=== PATIENT | female | born 1995 | race American Indian/Alaskan Native ===

== ENCOUNTER 2017-08-31 19:06 | Emergency (ER) | payer MEDICAID ==
[2017-08-31 20:28] LABS: Basophils # (Auto) 0.1 K/mm3 (0.0-0.1); Basophils % (Auto) 0.7 % (0.0-1.8); Eosinophils # (Auto) 0.2 K/mm3 (0.0-0.4); Eosinophils % (Auto) 1.9 % (0.0-4.3); Hematocrit 36.8 % (30.3-42.9); Hemoglobin 11.4 gm/dl (10.1-14.3); Lymphocytes # (Auto) 2.2 K/mm3 (1.2-5.4); Mean Corpuscular HGB Conc 31 % (30-34); Mean Corpuscular Hemoglobin 27 pg (28-32); Mean Corpuscular Volume 86 fl (79-97); Monocytes # (Auto) 0.9 K/mm3 (0.0-0.8); Monocytes % (Auto) 9.6 % (0.0-7.3); Platelet Count 286 K/mm3 (140-440); Red Blood Count 4.26 M/mm3 (3.65-5.03); Red Cell Distribution Width 14.3 % (13.2-15.2)
[2017-08-31 20:33] LABS: Alanine Aminotransferase 9 units/L (7-56); Albumin 4.3 g/dL (3.9-5); BUN/Creatinine Ratio 20; Blood Urea Nitrogen 12 mg/dL (7-17); Calcium 9.1 mg/dL (8.4-10.2); Hemolysis Index 8
--- NOTE | 2017-08-31 21:17 | Emergency Department Report ---
ED Abdominal Pain HPI - General Chief Complaint: Abdominal Pain Stated Complaint: ABDOMINAL,CHEST PAIN Time Seen by Provider: 08/31/17 20:54 Source: patient Mode of arrival: Ambulatory Limitations: No Limitations - History of Present Illness Initial Comments: 22 yo female who comes in today due to abdominal pain. She states that it has been present times one week. She also admits to chest pain times two months. She denies any chest pain currently. She states that she may be , or having an ectopic per the patient. Abdominal pain described as left lower quadrant, suprapubic, with no radiation, nausea, or vomiting. Afebrile, vitals unremarkable. MD Complaint: abdominal pain -: week(s) (one ) Location: LLQ, suprapubic Radiation: none Migration to: no migration Severity: moderate Severity scale (0 -10): 8 Quality: cramping, aching, sharp Consistency: constant Improves With: nothing Worsens With: nothing Context: other (possible (per the patient)) Associated Symptoms: nausea Treatments Prior to Arrival: other (none) - Related Data LMP Date: 08/13/17 Allergies Allergy/AdvReac Type Severity Reaction Status Date / Time No Known Allergies Allergy Unverified 08/31/17 19:32 ED Review of Systems ROS: Stated complaint: ABDOMINAL,CHEST PAIN Other details as noted in HPI Constitutional: denies: chills, fever Eyes: denies: eye pain, eye discharge, vision change ENT: denies: ear pain, throat pain Respiratory: denies: cough, shortness of breath, wheezing Cardiovascular: denies: chest pain, palpitations Endocrine: no symptoms reported Gastrointestinal: as per HPI, abdominal pain, nausea, vomiting Genitourinary: denies: urgency, dysuria, discharge Musculoskeletal: denies: back pain, joint swelling, arthralgia Skin: denies: rash, lesions Neurological: denies: headache, weakness, paresthesias Psychiatric: denies: anxiety, depression Hematological/Lymphatic: denies: easy bleeding, easy bruising ED Past Medical Hx - Past Medical History Previous Medical History?: No - Surgical History Past Surgical History?: No - Social History Smoking Status: Never Smoker Substance Use Type: None ED Physical Exam - General Limitations: No Limitations General appearance: alert, in no apparent distress - Head Head exam: Present: atraumatic, normocephalic - Eye Eye exam: Present: normal appearance - ENT ENT exam: Present: mucous membranes moist - Neck Neck exam: Present: normal inspection - Respiratory Respiratory exam: Present: normal lung sounds bilaterally. Absent: respiratory distress - Cardiovascular Cardiovascular Exam: Present: regular rate, normal rhythm. Absent: systolic murmur, diastolic murmur, rubs, gallop - GI/Abdominal GI/Abdominal exam: Present: tenderness (suprapubic, left lower quadrant ) - Extremities Exam Extremities exam: Present: normal inspection - Back Exam Back exam: Present: normal inspection - Neurological Exam Neurological exam: Present: alert - Psychiatric Psychiatric exam: Present: normal affect - Skin Skin exam: Present: warm ED Course Vital Signs 08/31/17 08/31/17 08/31/17 19:26 20:52 20:53 Temperature 98.3 F 98 F Pulse Rate 95 H 80 Respiratory 18 18 Rate Blood Pressure 110/64 Blood Pressure 112/68 [Left] O2 Sat by Pulse 99 100 Oximetry - Reevaluation(s) Reevaluation #1: 08/31/17 21:29 Awaiting urine and hcg results. ED Medical Decision Making - Lab Data Result diagrams: 08/31/17 20:00 08/31/17 20:00 - EKG Data -: EKG Interpreted by Me EKG shows normal: sinus rhythm Rate: normal - EKG Data When compared to previous EKG there are: previous EKG unavailable Interpretation: no acute changes, normal EKG - Medical Decision Making Abdominal pain Nausea/vomiting Chest pain Anxiety - Differential Diagnosis abdominal pain, nausea/vomiting, chest pain, anxiety Critical care attestation.: If time is entered above; I have spent that time in minutes in the direct care of this critically ill patient, excluding procedure time. ED Disposition Clinical Impression: Abdominal pain, Nausea & vomiting, Chest pain, Anxiety Disposition: DC-01 TO HOME OR SELFCARE Is pt being admited?: No Does the pt Need Aspirin: No Condition: Stable Instructions: Abdominal Pain (ED), Chest Pain (ED), Anxiety (ED) Additional Instructions: Please follow up with your provider on discharge for further evaluation. Referrals: PRIMARY CARE, [Referring] - 3-5 Days Time of Disposition: 23:07
[2017-08-31 21:46] LABS: Bilirubin,Urine NEG (Negative); Blood,Urine NEG (Negative); Color,Urine Yellow (Yellow); Mucus,Urine 3+ /HPF; Nitrite,Urine NEG (Negative); Urobilinogen,Urine < 2.0 mg/dL (<2.0)
[2017-08-31 23:03] LABS: HCG Qualitative,Urine Negative (Negative)
[2017-08-31 23:28] VITALS: BP 114/72
== END 2017-08-31 23:34 | disposition home or self-care (01) ==
LOC: ED 19:06
DX: R10.32 Left lower quadrant pain (principal); R11.2 Nausea with vomiting, unspecified; R07.9 Chest pain, unspecified; F41.9 Anxiety disorder, unspecified
CPT/HCPCS: 36415; 80053; 81001; 81025; 85025; 93005; 93010; 99283

== ENCOUNTER 2017-09-11 17:56 | Emergency (ER) | payer MEDICAID ==
[2017-09-11 18:47] VITALS: BP 103/70
== END 2017-09-12 04:58 | disposition left against medical advice (07) ==
LOC: ED 17:56
DX: R10.9 Unspecified abdominal pain (principal); Z53.21 Procedure and treatment not carried out due to patient leaving prior to being seen by health care provider

== ENCOUNTER 2017-09-15 14:37 | Emergency (ER) | payer MEDICAID ==
[2017-09-15 14:51] VITALS: BP 116/70
--- NOTE | 2017-09-15 18:51 | Emergency Department Report ---
<GAMALIEL VO - Last Filed: 09/15/17 18:03> ED Female HPI - General Chief complaint: Urogenital-Female Stated complaint: ABDOMINAL PAIN Time Seen by Provider: 09/15/17 18:03 Source: patient Mode of arrival: Ambulatory Limitations: No Limitations - History of Present Illness Initial comments: 22-year-old Faith female comes in for complaint of vaginal discharge and possible exposure to Trichomonas. Patient reports that she's been having abdominal pain for greater than a month. She is sexually active with one partner. She reports she has vaginal discharge but no odor and no itchiness. Patient is 3 para 1. She currently takes no medication has no known drug allergies. MD Complaint: vaginal discharge, pelvic pain - Related Data Previous Rx's Medication Instructions Recorded Last Taken Type metroNIDAZOLE [Flagyl] 500 mg PO Q12HR 7 Days #14 tab 09/15/17 Unknown Rx Allergies Allergy/AdvReac Type Severity Reaction Status Date / Time No Known Allergies Allergy Verified 09/15/17 14:48 ED Review of Systems ROS: Stated complaint: ABDOMINAL PAIN Other details as noted in HPI Constitutional: denies: chills, fever Eyes: denies: eye pain, eye discharge, vision change ENT: denies: ear pain, throat pain Respiratory: denies: cough, shortness of breath, wheezing Cardiovascular: denies: chest pain, palpitations Endocrine: no symptoms reported Gastrointestinal: denies: abdominal pain, nausea, diarrhea Genitourinary: denies: urgency, dysuria, discharge Musculoskeletal: denies: back pain, joint swelling, arthralgia Skin: denies: rash, lesions Neurological: denies: headache, weakness, paresthesias Psychiatric: denies: anxiety, depression Hematological/Lymphatic: denies: easy bleeding, easy bruising ED Past Medical Hx - Past Medical History Previous Medical History?: No - Surgical History Past Surgical History?: No - Social History Smoking Status: Never Smoker Substance Use Type: None - Medications Home Medications: Home Medications Medication Instructions Recorded Confirmed Last Taken Type metroNIDAZOLE [Flagyl] 500 mg PO Q12HR 7 Days #14 tab 09/15/17 Unknown Rx ED Physical Exam - General Limitations: No Limitations General appearance: alert, in no apparent distress - Head Head exam: Present: atraumatic, normocephalic - ENT ENT exam: Present: mucous membranes moist - External exam: Present: normal external exam Speculum exam: Present: vaginal discharge, cervical discharge Bi-manual exam: Present: normal bi-manual exam. Absent: adnexal tenderness - Extremities Exam Extremities exam: Present: normal inspection - Back Exam Back exam: Present: normal inspection - Neurological Exam Neurological exam: Present: alert, oriented X3 - Psychiatric Psychiatric exam: Present: normal affect, normal mood - Skin Skin exam: Present: warm, dry, intact, normal color. Absent: rash ED Course Vital Signs 09/15/17 14:48 Temperature 98 F Pulse Rate 74 Respiratory 18 Rate Blood Pressure 116/70 O2 Sat by Pulse 100 Oximetry ED Medical Decision Making - Radiology Data Radiology results: report reviewed, image reviewed - Medical Decision Making Patient's been evaluated by this provider faster. We will send wet prep and GC and treat her presumptively. Critical care attestation.: If time is entered above; I have spent that time in minutes in the direct care of this critically ill patient, excluding procedure time. ED Disposition Clinical Impression: Trichomonas infection, STD exposure, BV (bacterial vaginosis), Concern about STD in female without diagnosis Disposition: DC-01 TO HOME OR SELFCARE Is pt being admited?: No Does the pt Need Aspirin: No Condition: Stable Instructions: Bacterial Vaginosis (ED), Trichomoniasis (ED), Safe Sex (ED), Sexually Transmitted Diseases (ED) Additional Instructions: Please practice safe sex You were treated gonorrhea and Chlamydia in emergency room. Please do not have any sexual activity for the next 2 weeks. test was negative. Take medication as prescribed. This medication will cover bacterial vaginosis and Trichomonas. Please refrain from drinking all call while taking this medicine Please follow-up with the [employer] or [facility] for repeat STD testing and set 7-10 days Prescriptions: metroNIDAZOLE [Flagyl] 500 mg PO Q12HR 7 Days #14 tab Referrals: PRIMARY CARE, [Primary Care Provider] - 3-5 Days Forms: STI Treatment and Prevention, Work/School Release Form(ED) <BUBBA APPIAH - Last Filed: 09/15/17 20:28> ED Course - Reevaluation(s) Reevaluation #1: 09/15/17 20:19 I discussed patient that her wet prep results came back that she has greater than 20% himself which is bacterial vaginosis and also moderate amount of tract and no yeast. I discussed with her that her urinalysis is negative for urinary tract infection and her test is negative. Patient given the option to be treated empirically for gonorrhea and chlamydia and she chose to be treated. Patient and give an ceftriaxone 250 mg IM for gonorrhea and azithromycin 1 g by mouth for chlamydia. She is pleasant positive for bacterial vaginosis and Trichomonas which will be treated with Flagyl 500 mg twice daily for 7 days. I discussed with her she needs to refrain from drinking all call while taking Flagyl as this medication causes negative reaction with alcohol. I also discussed with her that she will need to follow- up at [facility] in 10 days for repeat testing and she needs not have any sexual activity while waiting for repeat testing. Safe sex discussed. I also encouraged her to let her partner know that she was treated for Trichomonas another STD in the emergency room. She voiced understanding and and discharged home in stable condition. ED Medical Decision Making - Lab Data Lab Results 09/15/17 Range/Units 19:14 Urine Color Yellow (Yellow) Urine Turbidity Clear (Clear) Urine pH 6.0 (5.0-7.0) Ur Specific [place] 1.023 (1.003-1.030) Urine Protein <15 mg/dl (Negative) mg/dL Urine Glucose (UA) Neg (Negative) mg/dL Urine Ketones Neg (Negative) mg/dL Urine Blood Neg (Negative) Urine Nitrite Neg (Negative) Urine Bilirubin Neg (Negative) Urine Urobilinogen < 2.0 (<2.0) mg/dL Ur Leukocyte Esterase Neg (Negative) Urine WBC (Auto) 2.0 (0.0-6.0) /HPF Urine RBC (Auto) 1.0 (0.0-6.0) /HPF U Epithel Cells (Auto) 4.0 (0-13.0) /HPF Urine Bacteria (Auto) 1+ (Negative) /HPF Urine Mucus 3+ /HPF Urine HCG, Qual Negative (Negative) Wet prep greater than 20% to cell, moderate Trichomonas and no yeast. Urinalysis revealed 1+ bacteria therefore urine culture sent off.
[2017-09-15 19:41] LABS: Bilirubin,Urine NEG (Negative); Color,Urine Yellow (Yellow)
[2017-09-15 19:42] LABS: Bacteria,Urine 1+ /HPF (Negative); Blood,Urine NEG (Negative); Mucus,Urine 3+ /HPF; Nitrite,Urine NEG (Negative); Protein,Urine <15 mg/dL mg/dL (Negative); Urobilinogen,Urine < 2.0 mg/dL (<2.0)
[2017-09-15 19:43] LABS: HCG Qualitative,Urine Negative (Negative)
[2017-09-15] MEDS ORDERED: ROCEPHIN IM ONE (20:18)
[2017-09-15] MEDS ORDERED: XYLOCAINE 1% MPF 5 mL INFILTRATI ONE (20:18)
[2017-09-15] MEDS ORDERED: ZITHROMAX PO ONE (20:18)
== END 2017-09-15 20:58 | disposition home or self-care (01) ==
LOC: ED 14:37
DX: A59.01 Trichomonal vulvovaginitis (principal); N76.0 Acute vaginitis; B96.89 Other specified bacterial agents as the cause of diseases classified elsewhere
CPT/HCPCS: 81001; 81025; 87086; 87210; 87591; 96372; 99284; J0696

== ENCOUNTER 2018-10-01 16:02 | Observation (INO) | payer MEDICAID ==
--- NOTE | 2018-10-01 16:15 | Emergency Department Report ---
Blank Doc - Documentation Documentation: This is a 23-year-old female that presents with headache with level of 9/10. Patient had vaginal on 09/24/2018. Denies hx of HTN. Denies thunderclap headache. Denies any blurry vision or visual changes. This initial assessment diagnostic orders/clinical plan/treatment(s) is/are subject to change based on patient's health status, clinical progression and re- assessment by fellow clinical providers in the ED. Further treatment and workup at subsequent clinical providers discretion. Patient/guardians urged not to elope from ED s their condition may be serious if not clinically assessed and managed. Initial orders include: 1-Patient sent to MAIN ED for further evaluation and treatment 2- Labs 3- UA
[2018-10-01] MEDS ORDERED: NORMODYNE IV ONE (16:53)
[2018-10-01 16:54] LABS: Basophils % (Auto) 0.5 % (0.0-1.8); Eosinophils # (Auto) 0.2 K/mm3 (0.0-0.4); Eosinophils % (Auto) 2.7 % (0.0-4.3); Hemoglobin 11.4 gm/dl (10.1-14.3); Lymphocytes % (Auto) 12.5 % (13.4-35.0); Mean Corpuscular HGB Conc 32 % (30-34); Mean Corpuscular Volume 86 fl (79-97); Monocytes # (Auto) 0.8 K/mm3 (0.0-0.8); Monocytes % (Auto) 10.1 % (0.0-7.3); Platelet Count 383 K/mm3 (140-440); Red Blood Count 4.19 M/mm3 (3.65-5.03); Red Cell Distribution Width 15.6 % (13.2-15.2)
--- NOTE | 2018-10-01 16:54 | Emergency Department Report ---
ED Headache HPI - General Chief Complaint: Headache Stated Complaint: HEADACHE 2 DAYS Time Seen by Provider: 10/01/18 16:12 Source: patient - History of Present Illness Initial Comments: 23-year-old female presents to ED with complaint of headache 3 days. Patient is 7 days , status post uneventful vaginal delivery. Denies any history of chronic hypertension, preeclampsia. Patient reported headache is located in the top of her head, unrelieved with ibuprofen. Patient denies fever, nausea or vomiting. OB: Dr Rowena Newsome Timing/Duration: other (3 days) Quality: severe Recent Head Trauma: no recent headache/trauma Associated Symptoms: denies: fever/chills, nausea/vomiting Allergies/Adverse Reactions: Allergies No Known Allergies Allergy (Verified 09/15/17 14:48) Home Medications: Ambulatory Orders metroNIDAZOLE [Flagyl] 500 mg PO Q12HR 7 Days #14 tab 09/15/17 HYDROcodone/APAP 5-325 [[place] 5/325] 1 each PO Q6HR PRN #20 tablet 09/25/18 Ibuprofen [Motrin] 800 mg PO Q8HR PRN #60 tablet 09/25/18 ED Review of Systems ROS: Stated complaint: HEADACHE 2 DAYS Other details as noted in HPI Comment: All other systems reviewed and negative Constitutional: denies: chills, fever Respiratory: denies: shortness of breath Cardiovascular: as per HPI. denies: chest pain Neurological: headache. denies: weakness, paresthesias ED Past Medical Hx - Past Medical History Previous Medical History?: No Hx Hypertension: No Hx Congestive Heart Failure: No Hx Diabetes: No Hx Deep Vein Thrombosis: No Hx Renal Disease: No Hx Sickle Cell Disease: No Hx Seizures: No Hx Asthma: No Hx COPD: No Hx HIV: No - Surgical History Past Surgical History?: No - Social History Smoking Status: Never Smoker Substance Use Type: None - Medications Home Medications: Home Medications Medication Instructions Recorded Confirmed Last Taken Type metroNIDAZOLE [Flagyl] 500 mg PO Q12HR 7 Days #14 tab 09/15/17 09/24/18 Unknown Rx HYDROcodone/APAP 5-325 [[place] 1 each PO Q6HR PRN #20 tablet 09/25/18 Unknown Rx 5/325] Ibuprofen [Motrin] 800 mg PO Q8HR PRN #60 tablet 09/25/18 Unknown Rx ED Physical Exam - General Limitations: No Limitations General appearance: alert, in no apparent distress - Head Head exam: Present: atraumatic, normocephalic - Eye Eye exam: Present: normal appearance - ENT ENT exam: Present: mucous membranes moist - Neck Neck exam: Present: normal inspection - Respiratory Respiratory exam: Present: normal lung sounds bilaterally. Absent: respiratory distress - Cardiovascular Cardiovascular Exam: Present: regular rate, normal rhythm - GI/Abdominal GI/Abdominal exam: Present: soft. Absent: distended, tenderness - Extremities Exam Extremities exam: Present: normal inspection. Absent: pedal edema - Neurological Exam Neurological exam: Present: alert, oriented X3, CN II-XII intact. Absent: motor sensory deficit - Psychiatric Psychiatric exam: Present: normal affect, normal mood - Skin Skin exam: Present: warm, dry, intact, normal color ED Course Vital Signs 10/01/18 10/01/18 16:04 16:16 Temperature 98.1 F Pulse Rate 84 Respiratory 20 Rate Blood Pressure 147/110 Blood Pressure 139/107 [Left] O2 Sat by Pulse 100 Oximetry - Consultations Consultation #1: 10/01/18 17:14 Spoke w/ Dr Hutchison. States will admit for preeclampsia. Will transport pt to L&D ED Medical Decision Making - Lab Data Result diagrams: 10/01/18 16:28 10/01/18 16:28 - Medical Decision Making 23-year-old female, 7 days , with suspected preeclampsia. Patient is an ED complaining of headache, with elevated blood pressure 150s/ 100s here in ED. No history of preeclampsia during her for history of chronic hypertension. Neurologic exam normal, no focal deficits. Contacted Dr. Estrada, who will admit patient to L&D so that magnesium sulfate drip can be initiated. Patient was given labetalol 10 mg for her elevated blood pressure and transported to L&D. Patient with positive proteinuria, elevated LDH, elevated ALT. - Differential Diagnosis preeclampsia, tension DOMINGUEZ, migraine DOMINGUEZ Critical Care Time: Yes Critical care time in (mins) excluding proc time.: 30 Critical care attestation.: If time is entered above; I have spent that time in minutes in the direct care of this critically ill patient, excluding procedure time. Critical Care Time: 30 minutes ED Disposition Clinical Impression: Pre-eclampsia, Disposition: OP ADMIT IP TO THIS HOSP Is pt being admited?: Yes Condition: Stable Time of Disposition: 17:08
[2018-10-01 17:01] LABS: INR 0.98 (0.87-1.13); Partial Thromboplastin Time 25.3 Sec. (24.2-36.6)
[2018-10-01 17:09] LABS: Alanine Aminotransferase 174 units/L (7-56); Albumin 3.8 g/dL (3.9-5); BUN/Creatinine Ratio 12; Blood Urea Nitrogen 7 mg/dL (7-17); Calcium 8.9 mg/dL (8.4-10.2); Hemolysis Index 2
[2018-10-01 17:25] LABS: Bacteria,Urine 1+ /HPF (Negative); Bilirubin,Urine NEG (Negative); Blood,Urine LG (Negative); Color,Urine Yellow (Yellow); Mucus,Urine FEW /HPF; Urobilinogen,Urine < 2.0 mg/dL (<2.0)
[2018-10-01] MEDS ORDERED: MAGNESIUM SULFATE 4GM/100ML 4 GM/100 ML BAG IV ONE (17:42)
[2018-10-01] MEDS ORDERED: LACTATED RINGERS 1,000 ML ONE (17:46)
[2018-10-01] MEDS ORDERED: LACTATED RINGERS 1,000 ML IV SCH (18:00)
[2018-10-01] MEDS: MAGNESIUM SULFATE 40GM/1000ML 40 GM/1,000 ML BAG IV SCH (18:30)
[2018-10-01 19:00] LABS: Uric Acid 5.3 mg/dL (3.5-7.6)
--- NOTE | 2018-10-02 06:54 | Short Stay Summary ---
Short Stay Documentation Date of service: 10/02/18 Narrative H&P: 23y/o s/p delivery approximately a week ago presents to the ED with the complaint of headache for the last 3 days. The patient was found to have elevated blood pressures upon evaluation. The patient denies any gestational hypertension during her . - History Principal diagnosis: preeclampsia Past Medical History: No medical history Past Surgical History: No surgical history Social history: single - Allergies and Medications Current Medications: Allergies No Known Allergies Allergy (Verified 09/15/17 14:48) Home Medications Medication Instructions Recorded Confirmed Last Taken Type metroNIDAZOLE [Flagyl] 500 mg PO Q12HR 7 Days #14 tab 09/15/17 09/24/18 Unknown Rx HYDROcodone/APAP 5-325 [[place] 1 each PO Q6HR PRN #20 tablet 09/25/18 Unknown Rx 5/325] Ibuprofen [Motrin] 800 mg PO Q8HR PRN #60 tablet 09/25/18 Unknown Rx Active Medications Magnesium Sulfate (Magnesium Sulfate 40gm/1000ml) 40 gm in 1,000 mls @ 50 mls/hr IV DIRECT AMIRAH Last Admin: 10/01/18 18:30 Dose: 2 gm/hr, 50 mls/hr Documented by: Lactated Ringer's (Lactated Ringers) 1,000 mls @ 75 mls/hr IV DIRECT AMIRAH Last Admin: 10/01/18 18:27 Dose: 75 mls/hr Documented by: - Physical exam General appearance: no acute distress Integumentary: no rash HEENT: Atraumatic Lungs: Clear to auscultation Breasts: deferred Heart: Regular rate Gastrointestinal: normal Female Genitourinary: deferred - Hospital course Hospital course: Patient from the ED with persistent headache and found to have preeclampsia. Patient admitted for magnesium with improvement in symptoms. Blood pressures normalized. - Disposition Condition at discharge: Good Disposition: DC-01 TO HOME OR SELFCARE Short Stay Discharge Plan Diet: regular Additional Instructions: schedule followup in one week for blood pressure check
[2018-10-02] MEDS: MAGNESIUM SULFATE 40GM/1000ML 40 GM/1,000 ML BAG IV SCH (12:34)
[2018-10-02 18:03] VITALS: BP 117/69
== END 2018-10-02 18:57 | disposition home or self-care (01) ==
LOC: ED 16:02 → TRG 16:02 → ED 17:17 → EDSTATUS 17:24 → LD 17:33 → TRG 23:50 → LD 10-02 00:24
PROVIDERS: ADMIT Obstetrics & Gynecology; ATTEND Obstetrics & Gynecology
DX: O14.95 Unspecified pre-eclampsia, complicating the puerperium (principal)
CPT/HCPCS: 36415; 80053; 81001; 83615; 83735; 84550; 85025; 85610; 85730; 96365; 96366; 96375; 99291; G0378; J3475; J7120

== ENCOUNTER 2018-10-12 20:18 | Inpatient (IN) | payer MEDICAID ==
--- NOTE | 2018-10-12 20:29 | Emergency Department Report ---
Chief Complaint: High BP Stated Complaint: HEAD PAINS DIZZINESS WHEN STANDING Time Seen by Provider: 10/12/18 20:24 - HPI History of Present Illness: Pt is c/o lightheadedness for the last two hours (+) DOMINGUEZ no emesis, vision changes, numbness, unilateral weakness, urinary sx post preeclampsia, pt was prescribed labetolol 200 mg BID and has been taking it for 3-4 days Pt had her child on 09/24/18, no complications, no HTN during Dr. Newsome, [employer] prescribed the labetolol pt has family hx of HTN /P:2 MSE screening note: Focused history and physical exam performed. Due to findings the following was ordered: UA, CBC, BMP ED Disposition for MSE Condition: Stable
[2018-10-12 20:47] LABS: Bilirubin,Urine NEG (Negative); Blood,Urine NEG (Negative); Color,Urine Yellow (Yellow); Mucus,Urine FEW /HPF
[2018-10-12 21:08] LABS: Hematocrit 34.1 % (30.3-42.9); Mean Corpuscular HGB Conc 32 % (30-34); Mean Corpuscular Volume 85 fl (79-97); Platelet Count 397 K/mm3 (140-440)
[2018-10-12 21:14] LABS: Alanine Aminotransferase 14 units/L (7-56); Albumin 3.9 g/dL (3.9-5); BUN/Creatinine Ratio 11; Blood Urea Nitrogen 9 mg/dL (7-17); Calcium 9.2 mg/dL (8.4-10.2); Hemolysis Index 9
[2018-10-12] MEDS ORDERED: PROCARDIA XL PO ONE (22:16)
--- NOTE | 2018-10-12 22:30 | Emergency Department Report ---
ED Headache HPI - General Chief Complaint: High BP Stated Complaint: HEAD PAINS DIZZINESS WHEN STANDING Time Seen by Provider: 10/12/18 20:24 - History of Present Illness Allergies/Adverse Reactions: Allergies No Known Allergies Allergy (Verified 09/15/17 14:48) Home Medications: Ambulatory Orders metroNIDAZOLE [Flagyl] 500 mg PO Q12HR 7 Days #14 tab 09/15/17 HYDROcodone/APAP 5-325 [[place] 5/325] 1 each PO Q6HR PRN #20 tablet 09/25/18 Ibuprofen [Motrin] 800 mg PO Q8HR PRN #60 tablet 09/25/18 ED Review of Systems ROS: Stated complaint: HEAD PAINS DIZZINESS WHEN STANDING Other details as noted in HPI ED Past Medical Hx - Past Medical History Previous Medical History?: Yes Hx Hypertension: No Hx Congestive Heart Failure: No Hx Diabetes: No Hx Deep Vein Thrombosis: No Hx Renal Disease: No Hx Sickle Cell Disease: No Hx Seizures: No Hx Asthma: No Hx COPD: No Hx HIV: No Additional medical history: preeclampsia - Surgical History Past Surgical History?: No - Social History Smoking Status: Never Smoker Substance Use Type: None - Medications Home Medications: Home Medications Medication Instructions Recorded Confirmed Last Taken Type metroNIDAZOLE [Flagyl] 500 mg PO Q12HR 7 Days #14 tab 09/15/17 09/24/18 Unknown Rx HYDROcodone/APAP 5-325 [[place] 1 each PO Q6HR PRN #20 tablet 09/25/18 Unknown Rx 5/325] Ibuprofen [Motrin] 800 mg PO Q8HR PRN #60 tablet 09/25/18 Unknown Rx ED Physical Exam - General Limitations: No Limitations ED Course Vital Signs 10/12/18 10/12/18 10/12/18 20:22 22:00 22:31 Temperature 98.2 F Pulse Rate 75 60 77 Respiratory 18 17 16 Rate Blood Pressure 150/98 155/104 155/104 Blood Pressure [Right] O2 Sat by Pulse 100 100 100 Oximetry 10/12/18 10/12/18 10/12/18 22:41 23:00 23:30 Temperature 98.4 F Pulse Rate 68 63 64 Respiratory 16 13 Rate Blood Pressure 150/91 170/111 Blood Pressure 178/86 150/91 [Right] O2 Sat by Pulse 100 100 Oximetry 10/12/18 10/13/18 10/13/18 23:47 00:11 00:15 Temperature Pulse Rate 57 L 75 Respiratory 15 14 11 L Rate Blood Pressure 170/111 170/111 136/91 Blood Pressure [Right] O2 Sat by Pulse 100 100 99 Oximetry 10/13/18 00:30 Temperature Pulse Rate 84 Respiratory 15 Rate Blood Pressure 126/79 Blood Pressure [Right] O2 Sat by Pulse Oximetry - Consultations Consultation #1: 10/12/18 22:29 Spoke w/ Dr Bliss. States give Procardia 60 mg PO, recheck BP in 30 min. If still elevated, will re-admit. If improves, d/c w/ Procardia and pt to f/u in office tomorrow. 10/12/18 23:35 One hour since procardia given. BP currently 170/111. Spoke again w/ Dr Bolivar dela cruz, states give mag bolus of 4g and initiate 2g/hr gtt. Would like bridge orders to [facility] ED Medical Decision Making - Lab Data Result diagrams: 10/12/18 20:40 10/12/18 20:45 Critical Care Time: Yes Critical care time in (mins) excluding proc time.: 30 Critical care attestation.: If time is entered above; I have spent that time in minutes in the direct care of this critically ill patient, excluding procedure time. Critical Care Time: 30 minutes ED Disposition Clinical Impression: Pre-eclampsia, Disposition: -09 OP ADMIT IP TO THIS HOSP Is pt being admited?: Yes Condition: Stable Time of Disposition: 23:38
[2018-10-12] MEDS ORDERED: MAGNESIUM SULFATE 4GM/100ML 4 GM/100 ML BAG IV ONE (23:36)
[2018-10-12] MEDS ORDERED: MAGNESIUM SULFATE 40GM/1000ML 40 GM/1,000 ML BAG IV SCH (23:45)
[2018-10-13] MEDS ORDERED: LACTATED RINGERS 1,000 ML IV SCH (01:00)
[2018-10-13] MEDS ORDERED: LACTATED RINGERS 1,000 ML ONE (01:11)
[2018-10-13] MEDS ORDERED: IBUPROFEN PO PRN (01:53)
--- NOTE | 2018-10-13 16:27 | Progress Note ---
Assessment and Plan A/P HD# PP pree on mag mag levels q4 mag for 24 hrs BP antihypertensice s needed Subjective - Subjective Date of service: 10/13/18 Principal diagnosis: PP Pree Patient reports: appetite normal, voiding normally, pain well controlled, flatus, ambulating normally [place]: doing well Objective - Vital Signs Latest vital signs: Vital Signs Temp Pulse Resp BP BP Pulse Ox 10/13/18 16:20 102 H 99 10/13/18 16:15 107 H 100 10/13/18 16:10 105 H 99 10/13/18 16:05 105 H 104/57 98 10/13/18 16:00 116 H 100 10/13/18 15:55 106 H 99 10/13/18 15:50 109 H 99 10/13/18 15:45 113 H 98 10/13/18 15:40 111 H 100 10/13/18 15:35 119 H 97 10/13/18 15:30 107 H 98 10/13/18 15:25 114 H 99 10/13/18 15:20 108 H 100 10/13/18 15:15 111 H 99 10/13/18 15:10 107 H 100 10/13/18 15:05 107 H 107/59 98 10/13/18 15:00 103 H 96 10/13/18 14:55 108 H 99 10/13/18 14:50 112 H 100 10/13/18 14:45 103 H 99 10/13/18 14:40 103 H 98 10/13/18 14:35 106 H 99 10/13/18 14:28 98 H 99 10/13/18 14:23 95 H 98 10/13/18 14:18 102 H 99 10/13/18 14:13 102 H 100 10/13/18 14:08 95 H 99 10/13/18 14:05 91 H 102/58 10/13/18 14:03 95 H 98 10/13/18 13:58 97 H 99 10/13/18 13:53 98 H 100 10/13/18 13:48 86 99 10/13/18 13:43 91 H 99 10/13/18 13:38 88 99 10/13/18 13:33 87 99 10/13/18 13:28 86 99 10/13/18 13:23 89 99 03/04/19 13:18 85 99 10/13/18 13:13 89 99 10/13/18 13:08 89 98 10/13/18 13:05 90 103/57 10/13/18 13:03 87 99 10/13/18 12:58 89 99 10/13/18 12:53 90 99 10/13/18 12:48 89 99 10/13/18 12:43 88 99 10/13/18 12:38 88 99 10/13/18 12:33 91 H 99 10/13/18 12:28 90 99 10/13/18 12:23 91 H 99 10/13/18 12:18 93 H 99 10/13/18 12:13 100 H 99 10/13/18 12:08 105 H 99 10/13/18 12:05 104 H 84/54 10/13/18 12:03 88 98 10/13/18 12:00 98.0 F 10/13/18 11:58 89 99 10/13/18 11:53 91 H 99 10/13/18 11:48 91 H 99 10/13/18 11:43 91 H 99 10/13/18 11:38 87 99 10/13/18 11:33 89 98 /11/28 11:28 90 99 10/13/18 11:23 89 99 10/13/18 11:18 91 H 99 10/13/18 11:13 89 99 10/13/18 11:08 89 99 10/13/18 11:05 90 97/51 10/13/18 11:03 91 H 98 10/13/18 10:58 90 98 10/13/18 10:53 88 98 10/13/18 10:48 88 98 10/13/18 10:43 94 H 98 10/13/18 10:38 92 H 99 10/13/18 10:33 87 98 10/13/18 10:28 90 99 10/13/18 10:23 92 H 98 10/13/18 10:18 88 98 10/13/18 10:13 90 98 10/13/18 10:08 91 H 98 10/13/18 10:05 88 97/52 10/13/18 10:03 97 H 97 10/13/18 09:58 90 99 10/13/18 09:53 89 98 10/13/18 09:48 89 99 10/13/18 09:43 87 98 03/11/28 09:38 98 H 99 /11/28 09:33 97 H 99 /11/28 09:28 93 H 98 /11/28 09:23 94 H 99 /11/28 09:18 96 H 99 10/13/18 09:13 94 H 99 /11/28 09:08 97 H 99 /04 09:05 90 98/56 10/13/18 09:03 94 H 100 10/13/18 08:58 95 H 99 10/13/18 08:53 91 H 99 /11/28 08:48 88 98 10/13/18 08:43 102 H 99 10/13/18 08:38 101 H 98 /11/28 08:33 92 H 99 10/13/18 08:28 97 H 98 10/13/18 08:23 96 H 99 /11/28 08:18 108 H 99 /11/28 08:13 102 H 99 10/13/18 08:08 103 H 99 10/13/18 08:05 96 H 109/53 10/13/18 08:03 96 H 98 10/13/18 07:58 97 H 99 // 07:53 100 H 98 10/13/18 07:48 102 H 99 10/13/18 07:43 113 H 98 10/13/18 07:38 124 H 99 /11/28 07:33 97.7 F 108 H 98 /11/28 07:28 107 H 99 10/13/18 07:23 103 H 97 10/13/18 07:18 97 H 98 /11/28 07:13 99 H 98 /11/28 07:08 98 H 98 10/13/18 07:05 102 H 100/54 /11/28 07:03 100 H 98 /04 06:58 101 H 97 04 06:53 96 H 98 10/13/18 06:48 93 H 97 /11/28 06:43 92 H 98 04 06:38 93 H 98 /04/ 06:33 91 H 98 /11/28 06:28 90 99 /04 06:23 86 98 10/13/18 06:18 84 99 10/13/18 06:13 85 98 10/13/18 06:08 82 98 10/13/18 06:05 84 109/66 10/13/18 06:03 84 98 10/13/18 05:58 84 98 10/13/18 05:53 81 98 10/13/18 05:48 82 98 10/13/18 05:43 80 98 10/13/18 05:38 82 98 10/13/18 05:33 81 98 10/13/18 05:28 80 98 10/13/18 05:23 83 98 10/13/18 05:18 81 98 10/13/18 05:13 79 98 10/13/18 05:08 79 98 10/13/18 05:05 78 119/78 10/13/18 05:03 80 97 10/13/18 04:58 84 99 10/13/18 04:53 83 98 10/13/18 04:48 83 99 10/13/18 04:43 81 99 10/13/18 04:38 85 100 10/13/18 04:33 84 97 10/13/18 04:28 87 99 10/13/18 04:23 89 98 10/13/18 04:18 79 99 10/13/18 04:13 85 99 10/13/18 04:08 76 98 10/13/18 04:05 70 123/77 10/13/18 04:03 74 98 10/13/18 03:58 75 98 10/13/18 03:53 76 99 10/13/18 03:48 73 98 10/13/18 03:43 75 99 10/13/18 03:38 75 98 10/13/18 03:33 71 98 10/13/18 03:28 74 99 10/13/18 03:23 70 99 10/13/18 03:18 68 99 10/13/18 03:13 69 99 10/13/18 03:08 76 100 10/13/18 03:05 73 136/94 10/13/18 03:03 76 100 10/13/18 03:00 73 20 136/94 10/13/18 02:58 72 100 10/13/18 02:53 74 100 10/13/18 02:48 77 100 10/13/18 02:43 80 100 10/13/18 02:38 77 100 10/13/18 02:33 80 100 10/13/18 02:27 69 100 10/13/18 02:22 68 100 10/13/18 02:17 78 100 10/13/18 02:12 78 100 10/13/18 02:07 68 100 10/13/18 02:05 66 127/82 10/13/18 02:02 75 100 10/13/18 02:00 66 20 127/82 10/13/18 01:57 79 99 10/13/18 01:52 65 99 10/13/18 01:47 61 100 10/13/18 01:42 66 100 10/13/18 01:37 62 100 10/13/18 01:32 70 100 10/13/18 01:27 69 100 10/13/18 01:22 96 H 99 10/13/18 01:17 75 99 10/13/18 01:12 68 100 10/13/18 01:07 67 99 10/13/18 01:05 71 133/95 10/13/18 01:00 98.5 F 71 20 133/95 10/13/18 00:30 84 15 126/79 10/13/18 00:15 75 11 L 136/91 99 10/13/18 00:11 14 170/111 100 10/12/18 23:47 57 L 15 170/111 100 10/12/18 23:30 64 13 170/111 100 10/12/18 23:00 98.4 F 63 16 150/91 150/91 100 10/12/18 22:41 68 178/86 10/12/18 22:31 77 16 155/104 100 10/12/18 22:00 60 17 155/104 100 10/12/18 20:22 98.2 F 75 18 150/98 100 Intake and Output 10/13/18 10/13/18 10/13/18 07:59 15:59 23:59 Intake Total 375 Output Total 720 1170 Balance -345 -1170 Intake: IV 375 Lactated Ringers 1,000 ml 225 @ 75 mls/hr IV DIRECT AMIRAH Rx#:[id number] MAGNESIUM SULFATE 40GM/ 150 1000ML 40 gm In 1,000 ml @ 2 GM/HR 50 mls/hr IV DIRECT AMIRAH Rx#:[id number] Output: Urine 720 1170 Indwelling Catheter 720 1170 Other: Total, Output Amount 150 200 - Exam Breasts: Present: normal Cardiovascular: Present: Regular rate, Normal S1 Lungs: Present: Clear to auscultation, Normal air movement Abdomen: Present: normal appearance, soft, normal bowel sounds. Absent: distention, tenderness, guarding Uterus: Present: normal, firm, fundal height below umbilicus. Absent: bogginess, tenderness Deep Tendon Reflex Grade: Normal +2 Incision: Present: normal, dry, intact - Labs Labs: Abnormal lab results 10/12/18 10/12/18 10/13/18 Range/Units 20:40 20:45 07:43 MCH 27 L (28-32) pg Chloride 107.6 H (98-107) mmol/L Magnesium 7.40 H (1.7-2.3) mg/dL
--- NOTE | 2018-10-14 08:14 | Progress Note ---
Assessment and Plan - Patient Problems (1) Pre-eclampsia, Current Visit: Yes Status: Acute Plan to address problem: doing well discharge home Subjective - Subjective Date of service: 10/14/18 Principal diagnosis: PP Pree Interval history: Patient reports feeling better today. She has completed her magnesium. Blood pressures normotensive Patient reports: appetite normal, voiding normally, pain well controlled Objective - Vital Signs Latest vital signs: Vital Signs Temp Pulse Resp BP BP Pulse Ox 10/14/18 05:33 98.5 F 88 20 108/63 10/14/18 01:05 120/70 10/14/18 00:39 97.9 F 90 20 113/79 98 10/13/18 20:12 97.8 F 92 H 18 118/74 10/13/18 19:33 100 H 116/73 10/13/18 19:32 100 H 18 116/73 10/13/18 18:45 95 H 99 10/13/18 18:40 105 H 100 10/13/18 18:35 103 H 100 10/13/18 18:30 92 H 100 10/13/18 18:25 99 H 99 10/13/18 18:20 103 H 100 10/13/18 18:15 96 H 100 10/13/18 18:10 98 H 99 10/13/18 18:05 101 H 115/61 99 10/13/18 18:00 98 H 100 10/13/18 17:55 97 H 99 10/13/18 17:50 97 H 99 10/13/18 17:45 100 H 99 10/13/18 17:40 104 H 100 10/13/18 17:35 110 H 100 10/13/18 17:30 103 H 99 10/13/18 17:25 102 H 99 10/13/18 17:20 98 H 99 10/13/18 17:15 99 H 99 10/13/18 17:10 104 H 100 10/13/18 17:05 99 H 105/63 98 10/13/18 17:00 101 H 99 10/13/18 16:55 101 H 98 10/13/18 16:50 98 H 99 10/13/18 16:45 105 H 100 10/13/18 16:40 106 H 99 10/13/18 16:35 101 H 99 10/13/18 16:30 101 H 98 10/13/18 16:25 107 H 99 10/13/18 16:20 102 H 99 10/13/18 16:15 107 H 100 10/13/18 16:10 105 H 99 10/13/18 16:05 105 H 104/57 98 10/13/18 16:00 97.8 F 116 H 100 10/13/18 15:55 106 H 99 10/13/18 15:50 109 H 99 10/13/18 15:45 113 H 98 10/13/18 15:40 111 H 100 10/13/18 15:35 119 H 97 10/13/18 15:30 107 H 98 10/13/18 15:25 114 H 99 10/13/18 15:20 108 H 100 10/13/18 15:15 111 H 99 10/13/18 15:10 107 H 100 10/13/18 15:05 107 H 107/59 98 10/13/18 15:00 103 H 96 10/13/18 14:55 108 H 99 10/13/18 14:50 112 H 100 10/13/18 14:45 103 H 99 10/13/18 14:40 103 H 98 10/13/18 14:35 106 H 99 10/13/18 14:28 98 H 99 10/13/18 14:23 95 H 98 10/13/18 14:18 102 H 99 10/13/18 14:13 102 H 100 10/13/18 14:08 95 H 99 10/13/18 14:05 91 H 102/58 10/13/18 14:03 95 H 98 10/13/18 13:58 97 H 99 10/13/18 13:53 98 H 100 10/13/18 13:48 86 99 10/13/18 13:43 91 H 99 10/13/18 13:38 88 99 10/13/18 13:33 87 99 10/13/18 13:28 86 99 10/13/18 13:23 89 99 10/13/18 13:18 85 99 10/13/18 13:13 89 99 10/13/18 13:08 89 98 10/13/18 13:05 90 103/57 10/13/18 13:03 87 99 10/13/18 12:58 89 99 10/13/18 12:53 90 99 10/13/18 12:48 89 99 11/28 12:43 88 99 /11/28 12:38 88 99 10/13/18 12:33 91 H 99 10/13/18 12:28 90 99 10/13/18 12:23 91 H 99 /11/28 12:18 93 H 99 10/13/18 12:13 100 H 99 10/13/18 12:08 105 H 99 10/13/18 12:05 104 H 84/54 10/13/18 12:03 88 98 10/13/18 12:00 98.0 F 10/13/18 11:58 89 99 10/13/18 11:53 91 H 99 10/13/18 11:48 91 H 99 10/13/18 11:43 91 H 99 10/13/18 11:38 87 99 /11/28 11:33 89 98 10/13/18 11:28 90 99 10/13/18 11:23 89 99 /11/28 11:18 91 H 99 /11/28 11:13 89 99 10/13/18 11:08 89 99 /11/28 11:05 90 97/51 10/13/18 11:03 91 H 98 /11/28 10:58 90 98 /11/28 10:53 88 98 /11/28 10:48 88 98 /11/28 10:43 94 H 98 /11/28 10:38 92 H 99 10/13/18 10:33 87 98 /11/28 10:28 90 99 10/13/18 10:23 92 H 98 /11/28 10:18 88 98 /11/28 10:13 90 98 /11/28 10:08 91 H 98 /11/28 10:05 88 97/52 03/11/28 10:03 97 H 97 /11/28 09:58 90 99 /11/28 09:53 89 98 /11/28 09:48 89 99 10/13/18 09:43 87 98 10/13/18 09:38 98 H 99 10/13/18 09:33 97 H 99 /11/28 09:28 93 H 98 /11/28 09:23 94 H 99 /11/28 09:18 96 H 99 /11/28 09:13 94 H 99 03/04/19 09:08 97 H 99 10/13/18 09:05 90 98/56 10/13/18 09:03 94 H 100 10/13/18 08:58 95 H 99 10/13/18 08:53 91 H 99 10/13/18 08:48 88 98 10/13/18 08:43 102 H 99 10/13/18 08:38 101 H 98 10/13/18 08:33 92 H 99 10/13/18 08:28 97 H 98 10/13/18 08:23 96 H 99 10/13/18 08:18 108 H 99 Intake and Output 10/13/18 10/14/18 10/14/18 22:59 06:59 14:59 Intake Total 360 Output Total 200 200 Balance -200 160 Intake: Intake, Free Water 360 Output: Urine 200 200 Indwelling Catheter 200 200 Other: Total, Output Amount 200 200 # Voids Indwelling Catheter 1 - Labs Labs: Abnormal lab results 10/13/18 10/13/18 Range/Units 07:43 15:50 Magnesium 7.40 H 8.30 H (1.7-2.3) mg/dL
--- NOTE | 2018-10-14 08:17 | Discharge Summary ---
Providers - Providers Date of Admission: 10/12/18 23:38 Date of discharge: 10/14/18 Attending physician: COLT COELLO 10/12/18 22:17 Consult to Physician [CONS] Stat Comment: Dr. Soria spoke with Dr. Coello @ 0838 Consulting Provider: COLT COELLO Physician Instructions: Reason For Exam: HTN Primary care physician: [facility], Hospitalization Reason for admission: other (headache and elevated blood pressure) Discharge diagnosis: other ( preeclampsia) Hospital course: Patient admitted with the complaint of headache and elevated blood pressures. Received 24hrs magnesium with improvement in symptoms Condition at discharge: Good Disposition: DC-01 TO HOME OR SELFCARE - Discharge Diagnoses (1) Pre-eclampsia, Status: Acute Plan - Provider Discharge Summary Activity: no sex for 6 weeks, no heavy lifting 4 weeks, no strenuous exercise Diet: routine Instructions: routine Additional instructions: [] Smoking cessation referral if applicable(refer to patient education folder for contact #) [] Refer to [facility] Booklet Call your doctor immediately for: * Fever > 100.5 * Heavy vaginal bleeding ( >1 pad per hour) * Severe persistent headache * Shortness of breath * Reddened, hot, painful area to leg or breast * schedule followup in 1-2 weeks for blood pressure monitoring - Follow up plan
[2018-10-14 14:04] VITALS: BP 116/83
== END 2018-10-14 13:00 | disposition home or self-care (01) | DRG 776 ==
LOC: ED 20:18 → LD 23:38 → OB 10-13 20:07
PROVIDERS: ADMIT Obstetrics & Gynecology; ATTEND Obstetrics & Gynecology
DX: O14.95 Unspecified pre-eclampsia, complicating the puerperium (principal)
CPT/HCPCS: 36415; 80053; 81001; 83735; 85027; 96365; G0378; J3475; J7120

== ENCOUNTER 2019-05-27 21:06 | Emergency (ER) | payer MEDICAID ==
[2019-05-27 21:22] VITALS: BP 133/85
--- NOTE | 2019-05-27 21:23 | Emergency Department Report ---
Blank Doc - Documentation Documentation: 24-year-old female that presents with dizziness and nausea. This initial assessment/diagnostic orders/clinical plan/treatment(s) is/are subject to change based on patient's health status, clinical progression and re- assessment by fellow clinical providers in the ED. Further treatment and workup at subsequent clinical providers discretion. Patient/guardians urged not to elope from the ED as their condition may be serious if not clinically assessed and managed. Initial orders include: 1- Patient sent to [facility] for further evaluation and treatment 2- labs 3- UA
[2019-05-27 21:49] LABS: Bilirubin,Urine NEG (Negative); Blood,Urine MOD (Negative); Color,Urine Yellow (Yellow); Mucus,Urine 1+ /HPF; Protein,Urine <15 mg/dL mg/dL (Negative); Urobilinogen,Urine < 2.0 mg/dL (<2.0)
[2019-05-27 21:53] LABS: Basophils % (Auto) 0.7 % (0.0-1.8); Eosinophils # (Auto) 0.4 K/mm3 (0.0-0.4); Eosinophils % (Auto) 5.4 % (0.0-4.3); Hematocrit 38.6 % (30.3-42.9); Hemoglobin 12.4 gm/dl (10.1-14.3); Lymphocytes # (Auto) 2.5 K/mm3 (1.2-5.4); Mean Corpuscular HGB Conc 32 % (30-34); Mean Corpuscular Volume 85 fl (79-97); Monocytes # (Auto) 0.6 K/mm3 (0.0-0.8); Monocytes % (Auto) 8.3 % (0.0-7.3); Platelet Count 291 K/mm3 (140-440); Red Blood Count 4.52 M/mm3 (3.65-5.03); Red Cell Distribution Width 14.6 % (13.2-15.2)
[2019-05-27 22:08] LABS: BUN/Creatinine Ratio 13; Blood Urea Nitrogen 9 mg/dL (7-17); Calcium 9.4 mg/dL (8.4-10.2); Hemolysis Index 8
[2019-05-27] MEDS ORDERED: BENADRYL PO ONE (23:51)
[2019-05-27] MEDS ORDERED: IBUPROFEN PO ONE (23:51)
--- NOTE | 2019-05-28 00:59 | Emergency Department Report ---
ED General Adult HPI - General Chief complaint: Dizziness Stated complaint: HEADACHE/DIZZINESS Time Seen by Provider: 05/27/19 21:22 Source: patient Mode of arrival: Ambulatory Limitations: No Limitations - History of Present Illness Initial comments: Pt is a 24-year-old female that presents with vaginal bleeding for past 3 months, started depo 2 months but has had only one dose. Pt is using 2-4 pads daily state she has associated dizziness and intermittent nausea. There is no fever no chills no vomiting. pt is tolerating po intake , is rx Fe therapy but is not adherent. pt has follow [facility] [employer] [facility] appointment next week. There is no hx of symptomatic anemia, no blood transfusions. Severity scale (0 -10): 3 - Related Data Previous Rx's Medication Instructions Recorded Last Taken Type Acetaminophen [Acetaminophen TAB] 650 mg PO Q6HR PRN #30 tablet 05/28/19 Unknown Rx diphenhydrAMINE [Benadryl CAP] 25 mg PO Q8HR PRN #30 capsule 05/28/19 Unknown Rx Allergies Allergy/AdvReac Type Severity Reaction Status Date / Time No Known Allergies Allergy Verified 09/15/17 14:48 ED Review of Systems ROS: Stated complaint: HEADACHE/DIZZINESS Other details as noted in HPI Constitutional: denies: chills, fever Eyes: denies: eye pain, eye discharge, vision change ENT: denies: ear pain, throat pain Respiratory: denies: cough, shortness of breath, wheezing Cardiovascular: denies: chest pain, palpitations Endocrine: no symptoms reported Gastrointestinal: nausea. denies: abdominal pain, vomiting, diarrhea, constipation, hematemesis, melena, hematochezia Genitourinary: denies: urgency, dysuria, discharge Musculoskeletal: denies: back pain, joint swelling, arthralgia Skin: denies: rash, lesions Neurological: denies: headache, weakness, numbness, paresthesias, confusion, vertigo Psychiatric: denies: anxiety, depression Hematological/Lymphatic: denies: easy bleeding, easy bruising ED Past Medical Hx - Past Medical History Previous Medical History?: Yes Hx Congestive Heart Failure: No Hx Diabetes: No Hx Headaches / Migraines: Yes Hx Asthma: No Hx COPD: No Additional medical history: preeclampsia - Surgical History Past Surgical History?: No - Social History Smoking Status: Never Smoker Substance Use Type: None - Medications Home Medications: Home Medications Medication Instructions Recorded Confirmed Last Taken Type Acetaminophen [Acetaminophen TAB] 650 mg PO Q6HR PRN #30 tablet 05/28/19 Unknown Rx diphenhydrAMINE [Benadryl CAP] 25 mg PO Q8HR PRN #30 capsule 05/28/19 Unknown Rx ED Physical Exam - General Limitations: No Limitations General appearance: alert, in no apparent distress - Head Head exam: Present: atraumatic, normocephalic - Eye Eye exam: Present: normal appearance, PERRL, EOMI. Absent: conjunctival injection, nystagmus Pupils: Present: normal accommodation - ENT ENT exam: Present: normal orophraynx, mucous membranes moist, TM's normal bilaterally, normal external ear exam - Neck Neck exam: Present: normal inspection, full ROM. Absent: tenderness, meningismus, lymphadenopathy, thyromegaly - Respiratory Respiratory exam: Present: normal lung sounds bilaterally. Absent: respiratory distress, wheezes, rales, rhonchi, stridor, chest wall tenderness - Cardiovascular Cardiovascular Exam: Present: regular rate, normal rhythm, normal heart sounds. Absent: systolic murmur, diastolic murmur, rubs, gallop - GI/Abdominal GI/Abdominal exam: Present: soft, normal bowel sounds. Absent: distended, tenderness, guarding, rebound, rigid, bruit, hernia - Rectal Rectal exam: Present: deferred - External exam: Present: other (deferred by patient) - Extremities Exam Extremities exam: Present: normal inspection, full ROM, normal capillary refill. Absent: tenderness - Back Exam Back exam: Present: normal inspection, full ROM. Absent: tenderness, CVA tenderness (R), CVA tenderness (L), rash noted - Neurological Exam Neurological exam: Present: alert, oriented X3, CN II-XII intact, normal gait - Expanded Neurological Exam Expanded Patient oriented to: Present: person, place, time Speech: Present: fluid speech Cranial nerves: EOM's Intact: Normal, Gag Reflex: Normal, Tongue Deviation: Normal, Nystagmus: Normal, Facial Sensation: Normal Upper motor neuron: Rodriguez Neglect: Normal, Pronator Drift: Normal Motor strength exam: RUE: 5, LUE: 5, RLE: 5, LLE: 5 Best Eye Response (Deneen): (4) open spontaneously Best Motor Response (Deneen): (6) obeys commands Best Verbal Response (Deneen): (5) oriented Deneen Total: 15 - Psychiatric Psychiatric exam: Present: normal affect, normal mood - Skin Skin exam: Present: warm, dry, intact, normal color. Absent: rash ED Course Vital Signs 05/27/19 05/27/19 21:21 21:22 Temperature 98.5 F 98.5 F Pulse Rate 85 85 Respiratory 16 18 Rate Blood Pressure 133/85 Blood Pressure 133/85 [Left] O2 Sat by Pulse 98 100 Oximetry ED Medical Decision Making - Lab Data Result diagrams: 05/27/19 21:38 05/27/19 21:38 Labs 05/27/19 05/27/19 05/27/19 21:38 21:38 21:38 WBC 6.7 RBC 4.52 Hgb 12.4 Hct 38.6 MCV 85 MCH 27 L MCHC 32 RDW 14.6 Plt Count 291 Lymph % (Auto) 37.0 H [place] % (Auto) 8.3 H Eos % (Auto) 5.4 H Baso % (Auto) 0.7 Lymph # 2.5 [place] # 0.6 Eos # 0.4 Baso # 0.0 Seg Neutrophils % 48.6 Seg Neutrophils # 3.3 Sodium 140 Potassium 4.7 Chloride 106.9 Carbon Dioxide 18 L Anion Gap 20 BUN 9 Creatinine 0.7 Estimated GFR > 60 BUN/Creatinine Ratio 13 Glucose 93 Calcium 9.4 HCG, Qual Negative Urine Color Urine Turbidity Urine pH Ur Specific [place] Urine Protein Urine Glucose (UA) Urine Ketones Urine Blood Urine Nitrite Urine Bilirubin Urine Urobilinogen Ur Leukocyte Esterase Urine WBC (Auto) Urine RBC (Auto) Urine Mucus 05/27/19 Unknown WBC RBC Hgb Hct MCV MCH MCHC RDW Plt Count Lymph % (Auto) [place] % (Auto) Eos % (Auto) Baso % (Auto) Lymph # [place] # Eos # Baso # Seg Neutrophils % Seg Neutrophils # Sodium Potassium Chloride Carbon Dioxide Anion Gap BUN Creatinine Estimated GFR BUN/Creatinine Ratio Glucose Calcium HCG, Qual Urine Color Yellow Urine Turbidity Clear Urine pH 5.0 Ur Specific [place] 1.017 Urine Protein <15 mg/dl Urine Glucose (UA) Neg Urine Ketones Neg Urine Blood Mod Urine Nitrite Neg Urine Bilirubin Neg Urine Urobilinogen < 2.0 Ur Leukocyte Esterase Neg Urine WBC (Auto) 1.0 Urine RBC (Auto) 1.0 Urine Mucus 1+ - Medical Decision Making Pt states symptoms are improved. H/H is stable at 12.4/38.6, there is no vertigo, no dizziness , no cp, no palpitations, no sob, no vomiting, vital signs are normal, pt is a/o x 3 ambulatory with steady gait at this time. plan: follow up with [facility] [employer] [facility] in 1-2 days, take medications as prescribed, hydrate as directed , return to ed if symptoms worsen or return. Critical care attestation.: If time is entered above; I have spent that time in minutes in the direct care of this critically ill patient, excluding procedure time. ED Disposition Clinical Impression: Abnormal uterine bleeding (AUB), Dizzinesses Menorrhagia Qualifiers: Menorrahagia type: with irregular cycle Qualified Code(s): N92.1 - Excessive and frequent menstruation with irregular cycle Disposition: TO HOME OR SELFCARE Is pt being admited?: No Does the pt Need Aspirin: No Condition: Stable Instructions: Menorrhagia (ED) Prescriptions: Acetaminophen [Acetaminophen TAB] 650 mg PO Q6HR PRN #30 tablet PRN Reason: Pain diphenhydrAMINE [Benadryl CAP] 25 mg PO Q8HR PRN #30 capsule PRN Reason: dizziness Referrals: [facility] [Provider Group] - 3-5 Days Forms: Work/School Release Form(ED) Time of Disposition: 01:14
== END 2019-05-28 01:27 | disposition home or self-care (01) ==
LOC: ED 21:06
DX: N92.1 Excessive and frequent menstruation with irregular cycle (principal); G43.909 Migraine, unspecified, not intractable, without status migrainosus; R42 Dizziness and giddiness; Z79.899 Other long term (current) drug therapy
CPT/HCPCS: 36415; 80048; 81001; 84703; 85025; 99283

== ENCOUNTER 2019-07-26 01:13 | Emergency (ER) | payer MEDICAID ==
[2019-07-26 01:56] VITALS: BP 117/80
== END 2019-07-26 09:30 | disposition left against medical advice (07) ==
LOC: ED 01:13
DX: R20.2 Paresthesia of skin (principal); Z53.21 Procedure and treatment not carried out due to patient leaving prior to being seen by health care provider

== ENCOUNTER 2019-10-16 21:11 | Emergency (ER) | payer MEDICAID ==
[2019-10-16 21:18] VITALS: BP 123/78
--- NOTE | 2019-10-16 21:49 | Emergency Department Report ---
Chief Complaint: Upper Respiratory Infection Stated Complaint: BODYACHES, FEVER/CHILLS, DIZZINESS Time Seen by Provider: 10/16/19 21:44 - HPI History of Present Illness: This is a 24 y.o. F. that presents with chills, cough, and dizziness for 3 days. Taking dayquil and last taken at 1600 today. LMP 10/12/19 + vomiting once - abdominal pain, weakness, visual changes, or diarrhea. - Exam Vital Signs: Vital Signs 10/16/19 21:17 Temperature 98.3 F Pulse Rate 97 H Respiratory 18 Rate Blood Pressure 123/78 O2 Sat by Pulse 100 Oximetry MSE screening note: Focused history and physical exam performed. Due to findings the following was ordered: ED Disposition for MSE Condition: Stable
--- NOTE | 2019-10-16 23:20 | Emergency Department Report ---
HPI - General Chief Complaint: Upper Respiratory Infection Time Seen by Provider: 10/16/19 21:44 - HPI HPI: Room 33 The patient is a 24-year-old female present with a chief complaint of sore throat body aches and cough. Patient states her symptoms began 3 days ago feeling weak and fatigued, intermittent lightheadedness chills and sore throat. Patient states she is had a cough has been nonproductive for the past 3 days. Patient admits to rhinorrhea. Patient denies fever. Patient states her children are sick at home and have URI symptoms. The patient states she has had 2 cycles a month since July ED Past Medical Hx - Past Medical History Previous Medical History?: Yes Hx Hypertension: Yes Hx Headaches / Migraines: Yes Additional medical history: preeclampsia - Surgical History Past Surgical History?: No - Family History Family history: no significant - Social History Smoking Status: Current Some Day Smoker (Black and milds) Substance Use Type: None (Denies illicit drug use), Alcohol (Occasional) - Medications Home Medications: Home Medications Medication Instructions Recorded Confirmed Last Taken Type Acetaminophen [Acetaminophen TAB] 650 mg PO Q6HR PRN #30 tablet 05/28/19 Unknow n Rx diphenhydrAMINE [Benadryl CAP] 25 mg PO Q8HR PRN #30 capsule 05/28/19 Unknown Rx ED Review of Systems ROS: Stated complaint: BODYACHES, FEVER/CHILLS, DIZZINESS Other details as noted in HPI Constitutional: chills. denies: fever ENT: throat pain Respiratory: cough Endocrine: no symptoms reported Genitourinary: abnormal menses. denies: dysuria Musculoskeletal: denies: back pain Neurological: denies: headache Physical Exam - Physical Exam Vital Signs: Vital Signs 10/16/19 21:17 Temperature 98.3 F Pulse Rate 97 H Respiratory 18 Rate Blood Pressure 123/78 O2 Sat by Pulse 100 Oximetry Physical Exam: GENERAL: The patient is well-developed well-nourished female sitting on chair not appearing to be in acute distress. [] HEENT: Normocephalic. Atraumatic. Extraocular motions are intact. Patient has moist mucous membranes. Uvula midline NECK: Supple. Trachea midline CHEST/LUNGS: Clear to auscultation. There is no respiratory distress noted. HEART/CARDIOVASCULAR: Regular. There is no tachycardia. There is no gallop rub or murmur. ABDOMEN: Abdomen is soft, nontender. Patient has normal bowel sounds. There is no abdominal distention. SKIN: There is no rash. There is no edema. There is no diaphoresis. NEURO: The patient is awake, alert, and oriented. The patient is cooperative. The patient has normal speech MUSCULOSKELETAL:There is no evidence of acute injury. ED Course Vital Signs 10/16/19 21:17 Temperature 98.3 F Pulse Rate 97 H Respiratory 18 Rate Blood Pressure 123/78 O2 Sat by Pulse 100 Oximetry ED Medical Decision Making - Lab Data Result diagrams: 10/16/19 23:27 10/16/19 23:27 Laboratory Tests 10/16/19 10/16/19 10/16/19 23:17 23:27 23:27 WBC 15.7 H RBC 4.58 Hgb 12.5 Hct 39.2 MCV 86 MCH 27 L MCHC 32 RDW 14.0 Plt Count 264 Lymph % (Auto) 4.6 L Dickinson % (Auto) 5.9 Eos % (Auto) 0.9 Baso % (Auto) 0.3 Lymph # 0.7 L Dickinson # 0.9 H Eos # 0.1 Baso # 0.1 Seg Neutrophils % 88.3 H Seg Neutrophils # 13.9 H Sodium 141 Potassium 4.5 Chloride 105.4 Carbon Dioxide 21 L Anion Gap 19 BUN 12 Creatinine 0.6 L Estimated GFR > 60 BUN/Creatinine Ratio 20 Glucose 79 Calcium 9.8 HCG, Qual Influenza A (Rapid) Negative Influenza B (Rapid) Negative 10/16/19 23:27 WBC RBC Hgb Hct MCV MCH MCHC RDW Plt Count Lymph % (Auto) Dickinson % (Auto) Eos % (Auto) Baso % (Auto) Lymph # Dickinson # Eos # Baso # Seg Neutrophils % Seg Neutrophils # Sodium Potassium Chloride Carbon Dioxide Anion Gap BUN Creatinine Estimated GFR BUN/Creatinine Ratio Glucose Calcium HCG, Qual Negative Influenza A (Rapid) Influenza B (Rapid) - Radiology Data Radiology results: report reviewed (Chest x-ray), image reviewed (Chest x-ray) interpreted by me: Chest x-ray-no focal filtrates, no pneumothorax Chest x-ray (read by radiologist)-no acute abnormality - Differential Diagnosis Influenza, pneumonia, pharyngitis Critical care attestation.: If time is entered above; I have spent that time in minutes in the direct care of this critically ill patient, excluding procedure time. ED Disposition Clinical Impression: URI (upper respiratory infection), Leukocytosis Disposition: ELOPED Is pt being admited?: No Does the pt Need Aspirin: No Condition: Undetermined Forms: AMA Form Time of Disposition: 00:38 (Informed by nursing that patient has eloped)
--- NOTE | 2019-10-16 23:58 | XRay Report ---
CHEST 2 VIEWS INDICATION / CLINICAL INFORMATION: Cough. COMPARISON: None available. FINDINGS: SUPPORT DEVICES: None. HEART / MEDIASTINUM: No significant abnormality. LUNGS / PLEURA: No significant pulmonary or pleural abnormality. No pneumothorax. ADDITIONAL FINDINGS: No significant additional findings. IMPRESSION: 1. No significant abnormality. No evidence of pneumonia. Signer Name: Alee Calloway MD Signed: 10/16/2019 11:53 PM Workstation Name: [id number]
[2019-10-17 00:13] LABS: Basophils # (Auto) 0.1 K/mm3 (0.0-0.1); Basophils % (Auto) 0.3 % (0.0-1.8); Eosinophils # (Auto) 0.1 K/mm3 (0.0-0.4); Eosinophils % (Auto) 0.9 % (0.0-4.3); Hematocrit 39.2 % (30.3-42.9); Hemoglobin 12.5 gm/dl (10.1-14.3); Lymphocytes # (Auto) 0.7 K/mm3 (1.2-5.4); Lymphocytes % (Auto) 4.6 % (13.4-35.0); Mean Corpuscular HGB Conc 32 % (30-34); Mean Corpuscular Volume 86 fl (79-97); Monocytes # (Auto) 0.9 K/mm3 (0.0-0.8); Monocytes % (Auto) 5.9 % (0.0-7.3); Platelet Count 264 K/mm3 (140-440); Red Blood Count 4.58 M/mm3 (3.65-5.03)
[2019-10-17 00:16] LABS: BUN/Creatinine Ratio 20; Blood Urea Nitrogen 12 mg/dL (7-17); Calcium 9.8 mg/dL (8.4-10.2); Hemolysis Index 5
== END 2019-10-17 00:10 | disposition left against medical advice (07) ==
LOC: ED 21:11
DX: J06.9 Acute upper respiratory infection, unspecified (principal); D72.829 Elevated white blood cell count, unspecified; I10 Essential (primary) hypertension; G43.909 Migraine, unspecified, not intractable, without status migrainosus; F17.200 Nicotine dependence, unspecified, uncomplicated; Z79.899 Other long term (current) drug therapy
CPT/HCPCS: 36415; 71046; 80048; 84703; 85025; 87400